=== PATIENT | female | born 1950 | race African-American/Black ===

== ENCOUNTER 2019-12-27 09:58 | Inpatient (IN) | payer MEDICARE, BC ==
[~2019-12-27] VITALS: Ht 160 cm; Wt 67.8 kg
[2019-12-27] MEDS ORDERED: ASPirin 81 mg TAB PO ONE (10:15)
[2019-12-27 11:02] LABS: Basophils # (auto) 0.1 10 ^3/uL (0-0.2); Basophils % (auto) 1.3 % (0.0-2.0); Eosinophils # (auto) 0.1 10 ^3/uL (0-0.8); Eosinophils % (auto) 1.5 % (0.0-7.0); Hematocrit 35.5 % (36.0-46.0); Hemoglobin 12.2 g/dL (12.2-16.2); Lymphocytes # (auto) 2.1 10 ^3/uL (0.4-5.4); Lymphocytes % (auto) 40.2 % (10.0-50.0); Mean Corpuscular Hemoglobin 32.1 pg (28.0-32.0); Mean Corpuscular Hgb Conc. 34.4 g/dL (32.0-36.0); Mean Corpuscular Volume 93.3 fL (80.0-100.0); Monocytes # (auto) 0.3 10 ^3/uL (0-1.3); Monocytes % (auto) 6.3 % (0.0-12.0); Neutrophils # (auto) 2.6 10 ^3/uL (1.6-8.6); Neutrophils % (auto) 50.7 % (37.0-80.0); Nucleated Red Blood Cells % 0.1 %; Platelet Count (auto) 245 10^3/uL (140-450); Red Blood Cells 3.81 10^6/uL (4.0-5.20); Red Cell Distribution Width 13.1 % (11.8-14.3); White Blood Cell 5.1 10^3/uL (4.4-10.8)
[2019-12-27 11:25] LABS: Albumin 3.9 g/dL (3.4-5.0); Anion Gap 5 (5-15); Blood Urea Nitrogen 11 mg/dL (7-18); Calcium 8.9 mg/dL (8.5-10.1); Carbon Dioxide 25 mmol/L (21-32); Chloride 109 mmol/L (98-107); Glucose 98 mg/dL (74-106); Magnesium 2.4 mg/dL (1.6-2.6); Potassium 3.7 mmol/L (3.5-5.1); Sodium 139 mmol/L (136-145)
[2019-12-27 11:26] LABS: INR 1.05 (0.9-1.15); Partial Thromboplastin Time 24.5 sec (23.0-31.2)
[2019-12-27 11:31] LABS: Alanine Aminotransferase 17 U/L (13-56); Alkaline Phosphatase 56 U/L (45-117); Aspartate Aminotransferase 11 U/L (15-37); BUN/Creatinine Ratio 16.7; Bilirubin, Total 0.4 mg/dL (0.2-1.0); GFR African American 114 mL/min; GFR Non-African American 94 mL/min; Total Protein 7.6 g/dL (6.4-8.2)
[2019-12-27 12:12] LABS: Urine Bacteria NONE SEEN /hpf (None Seen); Urine Blood Negative /uL (Negative); Urine Specific Gravity 1.013 (1.001-1.035); Urine WBC 1 /hpf (0 - 5)
[2019-12-27] MEDS ORDERED: MORPHINE SULF INJ 2 MG/ML SYRINGE 1ML IV PRN (12:45)
[2019-12-27] MEDS ORDERED: NITROGLYCERIN 0.4 MG SL TAB SL PRN ×2 (12:45→17:30)
[2019-12-27] MEDS ORDERED: ONDANSETRON HCL 4 MG/2 ML VIAL IV PRN (17:30)
[2019-12-27] MEDS ORDERED: ACETAMINOPHEN 325 MG TAB PO PRN (17:30)
[2019-12-27] MEDS ORDERED: ATORVASTATIN 20 MG TAB PO ONE (17:30)
[2019-12-27] MEDS ORDERED: ALUM & MAG HYDROX-SIMETH LIQ(MAALOX) 30 ML PO ONE (17:30)
[2019-12-27] MEDS ORDERED: ACETAMINOPHEN 500 MG TAB PO PRN (17:30)
[2019-12-27] MEDS ORDERED: LORazepam 0.5 MG TAB PO PRN (17:30)
--- NOTE | 2019-12-27 18:00 | NUR ---
Telemetry admit from ER KAPIL SNEED admitted to Telemetry unit after SBAR received from VINAY Hernandez. Patient oriented to OSWALDO MAN RN primary RN, unit, room, bed, and unit policies regarding patient care and visiting hours. Patient now on continuous telemetry monitoring, tele box #[id number] and telemetry reading on arrival to unit is NSR 92 bpm. Patient weighed by bedscale and encouraged to call if they need something. Bed in lowest/locked position, bed rails up x2, call light within reach. All questions and concerns addressed, patient verbalized understanding.
[2019-12-27] MEDS: SODIUM CHLORIDE 0.9% 1,000 ML IV SCH (18:05)
[2019-12-27] MEDS ORDERED: IBUP200C3 PO (18:31)
--- NOTE | 2019-12-27 19:00 | NUR ---
Opening Shift Note Assumed care of patient, awake and alert. No S/S of distress/SOB or pain. Instructed on POC and to call for assist PRN, will continue to monitor for changes Q1hr and PRN. Patient in the lowest possible position with call light within reach. Will continue to monitor patient.
[2019-12-27 20:00] VITALS: BP 125/80
[2019-12-27] MEDS: CARVEDILOL 3.125 MG TAB PO SCH (21:29)
[2019-12-27] MEDS: MORPHINE SULF INJ 2 MG/ML SYRINGE 1ML IV PRN (21:30)
[2019-12-27 22:12] VITALS: BP 125/80
[2019-12-28] VITALS (7 sets, daily range): BP systolic 123–145; BP diastolic 60–82
[2019-12-28] MEDS: MORPHINE SULF INJ 2 MG/ML SYRINGE 1ML IV PRN (05:23)
--- NOTE | 2019-12-28 06:00 | NUR ---
Patient complained of right sided chest pain x2 times during the night, both times morphine per protocol was administered. Patient reported the pain going away with morphine and was able to sleep. Patient stated that she feels the pain upon exertion. Will continue to monitor patient.
[2019-12-28] MEDS: SODIUM CHLORIDE 0.9% 1,000 ML IV SCH ×2 (06:33→20:10)
--- NOTE | 2019-12-28 06:42 | NUR ---
IV insertion IV access obtained, via clean sterile technique by inserting 22 gauge catheter at the right hand after 2 attempts. IV secured properly. No trauma to site. Patient tolerated well.
--- NOTE | 2019-12-28 07:45 | NUR ---
Opening Shift Note Assumed care of patient, awake, alert, and oriented. No S/S of distress/SOB or pain. Bed in lowest/locked position, bed rails up x2, call light within reach. Instructed on POC and to call for assist PRN. Will continue to monitor for changes Q1hr and PRN.
[2019-12-28] MEDS ORDERED: ADENOSINE 55 MG in GIVE UN-DILUTED 0 ML IV STA (08:12)
--- NOTE | 2019-12-28 08:20 | NUR ---
OFF UNIT PATIENT TRANSPORTED TO STRESS TEST. NO S/S OF DISTRESS, SOB, PAIN NOTED AT DEPARTURE
[2019-12-28] MEDS ORDERED: ENOXAPARIN SOD 40 MG/0.4 ML SYRINGE SC SCH (10:00)
[2019-12-28] MEDS ORDERED: LISINOPRIL 5 MG TAB PO SCH (10:00)
[2019-12-28] MEDS: CARVEDILOL 3.125 MG TAB PO SCH (10:00)
[2019-12-28 10:17] LABS: Cholesterol 189 mg/dL (< 200); HDL Cholesterol 62 mg/dL (40-59); LDL Cholesterol 107 mg/dL (< 100); Triglycerides 84 mg/dL (< 150)
[2019-12-28] MEDS: ASPirin 81 mg TAB PO SCH (11:01)
[2019-12-28] MEDS: DOCUSATE SOD 100 MG CAP PO SCH (11:02)
[2019-12-28] MEDS ORDERED: traMADol HCL 50 MG TAB PO PRN (12:15)
[2019-12-28] MEDS: HYDROcodone-ACET 5/325MG TAB PO PRN ×2 (13:15→21:21)
--- NOTE | 2019-12-28 19:00 | NUR ---
Opening Shift Note Assumed care of patient, awake and alert. No S/S of distress/SOB or pain at this time. Instructed on POC and to call for assist PRN, will continue to monitor for changes Q1hr and PRN. Patient in the lowest possible position with call light within reach. Will continue to monitor patient.
--- NOTE | 2019-12-28 21:30 | NUR ---
Patient stated that she was in pain, pain was in her right chest that gets worse upon exertion. Medication to be given per protocol for patient. Will administer and continue to monitor patient.
[2019-12-28] MEDS ORDERED: ATORVASTATIN 20 MG TAB PO SCH (22:00)
[2019-12-29] VITALS (7 sets, daily range): BP systolic 125–153; BP diastolic 71–81
--- NOTE | 2019-12-29 07:26 | NUR ---
Opening Shift Note Assumed care of patient from noc shift rn, awake and alert, resting comfortably in bed. No S/S of distress/SOB or pain at this time. Instructed on POC and to call for assistance PRN, will continue to monitor for changes Q1hr and PRN. Bed in low and locked position with call light within reach.
[2019-12-29] MEDS: DOCUSATE SOD 100 MG CAP PO SCH (09:37)
[2019-12-29] MEDS: ASPirin 81 mg TAB PO SCH (09:37)
[2019-12-29] MEDS: SODIUM CHLORIDE 0.9% 1,000 ML IV SCH (09:38)
--- NOTE | 2019-12-29 10:54 | NUR ---
DR. DU AT BEDSIDE, DISCUSSED DISCHARGE PLANS WITH PATIENT.
--- NOTE | 2019-12-29 10:57 | NUR ---
Paged for Gume BUCK to confirm stress test result Per Dr. Phelps, Head Mechanic needs to clear patient before discharge. Awaiting a call back
--- NOTE | 2019-12-29 14:49 | NUR ---
HAVE PAGED HEBER GONG 4X, HAVE NOT RECEIVED A CALLBACK WILL CONTINUE TO PAGE FOR CARDIOLOGY CLEARANCE
--- NOTE | 2019-12-29 15:01 | NUR ---
Assessment Patient is a 54-year-old female who is alert and oriented. Prior to admission patient live with her daughter Yong and functioned with assistance. Per patient her daughter helps her with her ADLs. Per patient she does not have any medical equipment now. Advised patient there is a social service consult for a walker. Informed patient clinical information will be faxed to [facility]. Per patient she will return to her prior living arrangements post discharge and family will transport her home. Informed patient she has the right to participate in all discharge planning. Patient verbalized understanding and agreed to discharge plan. Faxed clinical information to [facility] request for walker to be deliver to bedside or lobby. Addendum: 12/29/19 at 1503 by ARLENE ARREDONDO Amended: Links added.
--- NOTE | 2019-12-29 16:14 | NUR ---
RECEIVED CONFIRMATION FROM ON-CALL LAND RECLAMATION SPECIALIST, DR. AVERY THAT PATIENT ISS CLEARED TO BE DISCHARGED. STRESS TEST IS NEGATIVE AND ECHO IS NORMAL. PATIENT IS ALSO AWAITING WALKER TO BE DELIVERED AT BEDSIDE OR LOBBY BY MARCUS.
--- NOTE | 2019-12-29 17:04 | NUR ---
PT IS AT SBA LEVEL WITH ACTIVITIES. NURSING TO ASSIST PATIENT NEEDED.
--- NOTE | 2019-12-29 18:00 | NUR ---
patient discharged at this time per MD's order. Discharge summary, provided with prescription and follow up instruction. pt verbalized understanding. A/O x4 during discharge. Walker delivered at bedside by bryn. IV discontinued and tele box returned to ICU.
== END 2019-12-29 18:00 | disposition home or self-care (01) | DRG 303 ==
LOC: ER 09:58 → TELE 09:59 → TELE-CENTR 17:32
PROVIDERS: ADMIT Hospitalist; ATTEND Internal Medicine
DX: I25.10 Atherosclerotic heart disease of native coronary artery without angina pectoris (principal); I10 Essential (primary) hypertension; E78.5 Hyperlipidemia, unspecified; R00.1 Bradycardia, unspecified; Z82.49 Family history of ischemic heart disease and other diseases of the circulatory system; Z90.710 Acquired absence of both cervix and uterus
CPT/HCPCS: 36415; 71045; 78452; 80053; 80061; 81001; 83036; 83735; 83880; 84443; 84484; 85025; 85610; 85730; 93017; 93306; 93926; 93970; 97110; 97116; 97163; 97530; G0378; J0153

== ENCOUNTER 2025-01-17 15:19 | Emergency (ER) | payer MEDICARE, BC ==
[~2025-01-17] VITALS: Ht 157.5 cm; Wt 60.6 kg
[~2025-01-17 15:19] MED LIST: IBUP200C3 PO
--- NOTE | 2025-01-17 16:25 | ED.PDOC ---
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 The patient states that for the last 3 weeks she has had constant sharp suprapubic pain, nonradiating, intensity 8/10, associated with urinary frequency, tenesmus, and strong smelling cloudy urine. She reports that approximately 1 week ago she began to have right flank pain as well described as sharp, nonradiating, 8/10 intensity, associated with nausea, headaches, and fatigue. She denies fever, vomiting, hematuria, chest pain, diaphoresis, and palpitations. The patient went to urgent care today where she was told she possibly has a kidney infection and was advised to come to the emergency department. 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 History Family History Family History (Other): Denies any previous family history Social History Smoker: Non-Smoker Alcohol: Occasionally Drugs: Denies Drug Use Lives In: Home Constitutional: reports: fatigue EENTM: denies: blurred vision, double vision, ear bleeding, ear discharge, ear drainage, ear pain, ear ringing, eye pain, eye redness, hearing loss, mouth pain, mouth swelling, nasal discharge, nose bleeding, nose congestion, nose pain, photophobia, tearing, throat pain, throat swelling, voice changes, others Respiratory: denies: cough, hemoptysis, orthopnea, SOB at rest, shortness of breath, SOB with excertion, stridor, wheezing, others Cardiovascular: denies: chest pain, dizzy spells, diaphoresis, Dyspnea on exertion, edema, irregular heart beat, left arm pain, lightheadedness, palpitations, PND, syncope, others Gastrointestinal: denies: abdomen distended, abdominal pain, blood streaked bowels, constipated, diarrhea, dysphagia, difficulty swallowing, hematemesis, melena, nausea, poor appetite, poor fluid intake, rectal bleeding, rectal pain, vomiting, others Genitourinary: reports: dysuria, flank pain, frequency, urgency, others (Tenesmus) Neurological: denies: dizziness, fainting, headache, left sided numbness, left sided weakness, numbness, paresthesia, pre-existing deficit, right sided numbness, right sided weakness, seizure, speech problems, tingling, tremors, weakness, others Musculoskeletal: denies: back pain, gout, joint pain, joint swelling, muscle pain, muscle stiffness, neck pain, others Integumetry: denies: bruises, change in color, change in hair/nails, dryness, laceration, lesions, lumps, rash, wounds, others Hematologic/Lymphatic: denies: anemia, blood clots, easy bleeding, easy bruising, swollen glands, others Endocrine: denies: excessive hunger, excessive sweating, excessive thirst, excessive urination, flushing, intolerance to cold, intolerance to heat, unexplained weight gain, unexplained weight loss, others Physical Exam General Appearance: Mild Distress HEENT: Normal ENT Inspection, PERRL/EOMI, Pharynx Normal, TMs Normal Neck: Full Range of Motion, Non-Tender, Normal, Normal Inspection Respiratory: Chest Non-Tender, No Accessory Muscle Use, No Respiratory Distress, Normal Breath Sounds Cardiovascular: No Edema, No JVD, No Murmur, No Gallop, Normal Peripheral Pulses, Regular Rate/Rhythm Breast Exam: Deferred Gastrointestinal: LLQ (Tenderness on palpation ), No Organomegaly, No Pulsatile Mass, Normal Bowel Sounds, RLQ (Tenderness on palpation), Suprapubic (Tenderness), Tenderness, Other (Right flank pain on minimal palpation) Genitalia: Deferred Pelvic: Deferred Rectal: Deferred Extremities: No calf tenderness, Normal capillary refill, Normal inspection, Normal range of motion, Non-tender Neurologic: No Motor Deficits, Normal Affect, Normal Mood, No Sensory Deficits Cerebellar Function: Normal Reflexes: Normal Skin: Normal Color Lymphatic: No Adenopathy Was a procedure done? Was a procedure done?: No Differential Dx Considerations may include: Cystitis, Pyelonephritis, Muscle strain X-Ray, Labs, Meds, VS Vital Signs Date Time Temp Pulse Resp B/P (MAP) Pulse Ox O2 Delivery O2 Flow Rate FiO2 10/20/25 15:21 98.5 73 15 129/83 98 98.5 Lab Test 01/17/25 16:33 01/17/25 16:14 Range/Units White Blood Count 5.5 4.4-10.8 10^3/uL Red Blood Count 4.23 4.0-5.20 10^6/uL Hemoglobin 13.2 12.2-16.2 g/dL Hematocrit 39.4 36.0-46.0 % Mean Corpuscular Volume 93.2 80.0-100.0 fL Mean Corpuscular Hemoglobin 31.2 28.0-32.0 pg Mean Corpuscular Hemoglobin Concent 33.5 32.0-36.0 g/dL Red Cell Distribution Width 13.7 11.8-14.3 % Platelet Count 253 140-450 10^3/uL Mean Platelet Volume 8.6 6.9-10.8 fL Neutrophils (%) (Auto) 52.6 37.0-80.0 % Lymphocytes (%) (Auto) 38.6 10.0-50.0 % Monocytes (%) (Auto) 7.0 0.0-12.0 % Eosinophils (%) (Auto) 1.1 0.0-7.0 % Basophils (%) (Auto) 0.7 0.0-2.0 % Neutrophils # (Auto) 2.9 1.6-8.6 10 ^3/uL Lymphocytes # (Auto) 2.1 0.4-5.4 10 ^3/uL Monocytes # (Auto) 0.4 0-1.3 10 ^3/uL Eosinophils # (Auto) 0.1 0-0.8 10 ^3/uL Basophils # (Auto) 0 0-0.2 10 ^3/uL Nucleated Red Blood Cells 0.0 % Sodium Level 142 136-145 mmol/L Potassium Level 4.1 3.5-5.1 mmol/L Chloride Level 101 98-107 mmol/L Carbon Dioxide Level 30 20-31 mmol/L Anion Gap 11 5-15 Blood Urea Nitrogen 15 9-23 mg/dL Creatinine 0.94 0.550-1.02 mg/dL Glomerular Filtration Rate Calc 63 >90 mL/min BUN/Creatinine Ratio 16.0 10.0-20.0 Serum Glucose 132 H 74-106 mg/dL Calcium Level 10.3 8.7-10.4 mg/dL Urine Color Light-yellow Yellow Urine Clarity Clear Clear Urine pH 5.0 5.0-9.0 Urine Specific [place] 1.021 1.001-1.035 Urine Protein Negative Negative Urine Ketones Negative Negative Urine Blood Negative Negative /uL Urine Nitrite Negative Negative Urine Bilirubin Negative Negative Urine Urobilinogen Normal Negative mg/dL Urine Leukocyte Esterase 1+ Negative /uL Urine RBC 1 0 - 4 /hpf Urine Microscopic WBC 3 0-5 /HPF Urine Squamous Epithelial Cells Few <5 /hpf Urine Bacteria None seen None Seen /hpf Urine Glucose Normal Normal mg/dL Urine Opiates Screen Neg NEGATIVE Urine Fentanyl Screen Neg NEGATIVE Urine Barbiturates Screen Neg NEGATIVE Urine Phencyclidine Screen Neg NEGATIVE Urine Amphetamines Screen Neg NEGATIVE Urine Benzodiazepines Screen Neg NEGATIVE Urine Cocaine Screen Neg NEGATIVE Urine Cannabinoids Screen Neg NEGATIVE Time of 1ST Reevaluation: 17:40 Reevaluation 1ST: Improved Patient Education/Counseling: Diagnosis, Treatment Family Education/Counseling: No Family Present SEPSIS Sepsis Screen Date sepsis recognized/suspect: Jan 17, 2025 Time Sepsis recognized/suspect: 1523 Recent Procedure: No On Antibiotic Therapy: No Respiratory Rate >20: No Heart Rate >90: No Temp<36 C (96.8 F) or >38.3 C: No SBP <90 or MAP <65 mmHG: No New Acute Mental Status Change: No Is the patient on CPAP, BIPAP,: No Physician Orders Urine Bacterial Culture (01/17/25 16:03) Ct Ab Pel Wo Con-No Oral Or Iv (01/17/25 16:04) Vital Signs Date Time Temp Pulse Resp B/P (MAP) Pulse Ox O2 Delivery O2 Flow Rate FiO2 01/17/25 15:21 98.5 73 15 129/83 98 98.5 Laboratory Tests Test 01/17/25 16:33 White Blood Count 5.5 10^3/uL (4.4-10.8) Departure 1 Departure Time of Disposition: 17:59 (Patient presented today with right flank pain that was concerning for possible cystitis, pyelonephritis, nephrolithiasis, muscle strain. 1. I ordered and reviewed the result of atleast 3 labs including a CBC, BMP, and urinanalysis. 2. I independently interpreted an abdomen/pelvis CT which shows fecal retention in the colon, but no evidence of pyelonephritis. After review of the data, patient does not present nephrolithiasis. She is considered stable for discharge. She will be discharged with course of oral antibiotics to be completed at home, given that due to symptoms it is considered beneficial. ) Impression: Primary Impression: Pyelonephritis Disposition: HOME / SELF CARE / HOMELESS Condition: Stable Additional Instructions: You presented today with flank pain Your workup today was benign including labs and CT abdomen/pelvis Due to your symptoms, it considered that there is benefit in oral antibiotic course It is important to follow up with your regular doctor within 1 week If your symptoms worsen or you have any other concerns please return to the emergency department Discharged With: Self Critical Care Note Critical Care Time?: No Stability Stability form required: HARDEEP Mann RESIDENT Jan 17, 2025 16:25
[2025-01-17 16:32] LABS: Urine Protein, UAD Negative (Negative)
[2025-01-17 16:42] LABS: Amphetamine Screen, Urine Neg (NEGATIVE); Barbiturate Scree,Urine Neg (NEGATIVE); Benzodiazephine Screen, Urine Neg (NEGATIVE); Cannabinoid Screen, Urine Neg (NEGATIVE); Cocaine Screen, Urine Neg (NEGATIVE); Opiate Scree,Urine Neg (NEGATIVE); Phencyclidine Screen, Urine Neg (NEGATIVE)
--- NOTE | 2025-01-17 16:52 | DVH ---
EXAM: CT CT AB PEL WO CON-NO ORAL OR IV HISTORY: R/o Pyelonephritis COMPARISON: None TECHNIQUE: Helical CT images of the abdomen and pelvis were performed without IV contrast. Sagittal a nd coronal reformatted images were obtained. This CT exam was performed using one or more of the foll owing dose reduction techniques: Automated exposure control, adjustment of the mA and/or kv according to patient size, or the use of iterative reconstruction techniques. Radiation Dose: Abdomen/Pelvis: CTDIvol 6.79 mGy, DLP 316.9 mGy*cm. FINDINGS: CT abdomen: There is mild scarring and/or atelectasis in the lung bases. The heart is borderline enla rged. There is a small pericardial effusion. The stomach is distended with ingested food. There is a left upper quadrant splenule. The noncontrast liver, spleen, gallbladder, pancreas, right kidney, an d bilateral adrenal glands are unremarkable. Column of Neel is incidentally noted in the left kidne y. No evidence of perinephric fluid or fat stranding bilaterally. No abdominal aortic aneurysm. CT pelvis: No abnormal bowel dilatation, free air, or free fluid. There is fecal retention in the col on. There are descending and sigmoid colon diverticula without evidence of acute diverticulitis. Th e uterus is surgically absent. The appendix and urinary bladder are unremarkable. There is a small le ft inguinal fatty indirect hernia. There are chronic appearing mild superior endplate compression fra ctures of T12, L1, and L2. There is moderate to severe osteoarthritis of the bilateral hips. IMPRESSION: 1. Small pericardial effusion and borderline cardiomegaly. 2. Fecal retention in the colon suggestive of constipation. 3. Descending and sigmoid colon diverticula without evidence of acute diverticulitis. 4. Postoperative changes of hysterectomy. 5. Moderate to severe bilateral hip osteoarthritis. 6. Multiple chronic appearing fractures of the thoracic and lumbar spine. 7. No evidence of pyelonephritis, bowel obstruction, acute appendicitis, or other acute process in th e abdomen or pelvis.
[2025-01-17 17:01] LABS: Hematocrit 39.4 % (36.0-46.0); Hemoglobin 13.2 g/dL (12.2-16.2); Mean Corpuscular Hemoglobin 31.2 pg (28.0-32.0); Mean Corpuscular Volume 93.2 fL (80.0-100.0); Nucleated Red Blood Cells % 0.0 %
[2025-01-17 17:06] LABS: Chloride 101 mmol/L (98-107); Potassium 4.1 mmol/L (3.5-5.1); Sodium 142 mmol/L (136-145)
[2025-01-17 17:07] LABS: Anion Gap 11 (5-15); Carbon Dioxide 30 mmol/L (20-31)
[2025-01-17 17:08] LABS: Calcium 10.3 mg/dL (8.7-10.4)
[2025-01-17 17:13] LABS: BUN/Creatinine Ratio 16.0 (10.0-20.0); Blood Urea Nitrogen 15 mg/dL (9-23)
[2025-01-17 17:25] LABS: Glucose 132 mg/dL (74-106)
[2025-01-17] MEDS ORDERED: CIPR500T4 PO (18:23)
[2025-01-17] MEDS ORDERED: CIPR-173 PO (18:25)
[2025-01-17 18:57] VITALS: BP 132/78; PULSE 64; RESP 16; TEMP 98.1; O2SAT 98
== END 2025-01-17 19:01 | disposition home or self-care (01) ==
LOC: ER 15:19
DX: N12 Tubulo-interstitial nephritis, not specified as acute or chronic (principal); I25.10 Atherosclerotic heart disease of native coronary artery without angina pectoris; M16.0 Bilateral primary osteoarthritis of hip; Z90.710 Acquired absence of both cervix and uterus; K57.30 Diverticulosis of large intestine without perforation or abscess without bleeding; R11.0 Nausea; R51.9 Headache, unspecified; Z79.899 Other long term (current) drug therapy
CPT/HCPCS: 36415; 74176; 80048; 80307; 81001; 85025; 87086

== ENCOUNTER 2025-01-20 15:06 | Inpatient (IN) | payer MEDICARE, BC ==
[~2025-01-20] VITALS: Ht 157.5 cm; Wt 67.2 kg
[~2025-01-20 15:06] MED LIST changes: +CIPR-173 PO
--- NOTE | 2025-01-20 15:28 | ED.PDOC ---
HPI (NEURO) HPI Comments This is a 74 year old female presenting to the ED with chief complaint of headache. Patient reports that she has been experiencing a headache with associated right sided chest pain, dizziness, and nausea for the past few hours. Patient relays that she visited today and was advised to come to the ED for further evaluation. Patient noted to be 100% on RA. Patient denies any SOB, vomiting, diarrhea, abdominal pain, or syncope. Chief Complaint: Headache Time Seen by MD: 15:25 Primary Care Provider: States she doesn't remember her PCP's name Reviewed Notes: Nurses Notes, Medications, Allergies Information Source: Patient Mode of Arrival: Ambulatory Severity: Moderate Dizziness/Weakness Severity: Does not affect activitie Headache Severity: Moderate Timing: Hours Duration: Since onset Prehospital treatment: None Headache Quality: Aching Headache Location: Generalized Onset: At rest Circumstances: Spontaneous Associated Signs and Symptoms: Headache, Nausea, Chest Pain Past Medical History PAST MEDICAL HISTORY: CAD, UTI'S Surgical History: Denies all surgeries RISK CONTROL FIELD REPRESENTATIVE History: No Pertinent RISK CONTROL FIELD REPRESENTATIVE History Family History Family History: Reviewed,noncontributory to illness Family History (Other): Denies any previous family history Social History Smoker: Non-Smoker Alcohol: Occasionally Drugs: Denies Drug Use Lives In: Home Constitutional: denies: chills, diaphoresis, fatigue, fever, malaise, sweats, weakness, others EENTM: denies: blurred vision, double vision, ear bleeding, ear discharge, ear drainage, ear pain, ear ringing, eye pain, eye redness, hearing loss, mouth pain, mouth swelling, nasal discharge, nose bleeding, nose congestion, nose pain, photophobia, tearing, throat pain, throat swelling, voice changes, others Respiratory: denies: cough, hemoptysis, orthopnea, SOB at rest, shortness of breath, SOB with excertion, stridor, wheezing, others Cardiovascular: reports: chest pain; denies: dizzy spells, diaphoresis, Dyspnea on exertion, edema, irregular heart beat, left arm pain, lightheadedness, palpitations, PND, syncope, others Gastrointestinal: reports: nausea; denies: abdomen distended, abdominal pain, blood streaked bowels, constipated, diarrhea, dysphagia, difficulty swallowing, hematemesis, melena, poor appetite, poor fluid intake, rectal bleeding, rectal pain, vomiting, others Genitourinary: denies: abnormal vagina bleeding, burning, dyspareunia, dysuria, flank pain, frequency, hematuria, incontinence, pain, , vagina discharge, urgency, others Neurological: reports: dizziness, headache; denies: fainting, left sided numbness, left sided weakness, numbness, paresthesia, pre-existing deficit, right sided numbness, right sided weakness, seizure, speech problems, tingling, tremors, weakness, others Musculoskeletal: denies: back pain, gout, joint pain, joint swelling, muscle pain, muscle stiffness, neck pain, others Integumetry: denies: bruises, change in color, change in hair/nails, dryness, laceration, lesions, lumps, rash, wounds, others Allergic/Immunocompromised: denies: Difficulty Healing, Frequent Infections, Hives, Itching, others Hematologic/Lymphatic: denies: anemia, blood clots, easy bleeding, easy bruising, swollen glands, others Endocrine: denies: excessive hunger, excessive sweating, excessive thirst, excessive urination, flushing, intolerance to cold, intolerance to heat, unexplained weight gain, unexplained weight loss, others Psychiatric: denies: anxiety, bipolar disorder, depression, hopeless, panic disorder, schizophrenia, sleepless, suicidal, others All Other Systems: Reviewed and Negative Physical Exam General Appearance: Moderate Distress, Normal HEENT: Normal ENT Inspection, Pharynx Normal, TMs Normal Neck: Full Range of Motion, Non-Tender, Normal, Normal Inspection Respiratory: Chest Non-Tender, Lungs Clear, No Accessory Muscle Use, No Respiratory Distress, Normal Breath Sounds Cardiovascular: No Edema, No JVD, No Murmur, No Gallop, Normal Peripheral Pulses, Regular Rate/Rhythm Breast Exam: Deferred Gastrointestinal: No Organomegaly, Non Tender, No Pulsatile Mass, Normal Bowel Sounds, Soft Genitalia: Deferred Pelvic: Deferred Rectal: Deferred Extremities: No calf tenderness, Normal capillary refill, Normal inspection, Normal range of motion, Non-tender, No pedal edema Musculoskeletal : Apperance: Normal Neurologic: Alert, wheat buyer II-XII nml as Tested, No Motor Deficits, Normal Affect, Normal Mood, No Sensory Deficits Cerebellar Function: Normal Reflexes: Normal Skin: Dry, Normal Color, Warm Peripheral Pulses: 3+ Radial (R), 3+ Radial (L) Lymphatic: No Adenopathy Was a procedure done? Was a procedure done?: No Differential Diagnosis (SZ) Seizure: Psychogenic Seizure, Closed Head Injury, CVA/TIA X-Ray, Labs, Meds, VS Vital Signs Date Time Temp Pulse Resp B/P (MAP) Pulse Ox O2 Delivery O2 Flow Rate FiO2 01/20/25 15:21 98.6 81 16 122/82 100 98.6 Patient alert. Complaining of headache dizziness. Vitals stable. Answering questions. Unable to ambulate without feeling like she is going to fall down. EKG reviewed does not show any acute changes. She will need a stress test. CT of the head. Explained to the patient. Continue monitoring. Time of 1ST Reevaluation: 16:24 Reevaluation 1ST: Unchanged Patient Education/Counseling: Diagnosis, Treatment Family Education/Counseling: No Family Present Departure 1 Departure Time of Disposition: 15:41 Impression: Primary Impression: Chest pain of unknown etiology Additional Impression: Autonomic disorder Disposition: ADMITTED INPATIENT Admit to: Med Surg Condition: Guarded Critical Care Note Critical Care Time?: Yes (90 min-critical care time only) Stability Stability form required: No Heart Score Heart Score: Heart Score Response (Comments) Value History Slightly Suspicious 0 EKG N/A 0 Age >65 2 Risk Factors >3 or Hx ASHD 2 Troponin Normal limit 0 Total 4 I personally scribed for TYLER GALLARDO MD ([email or web address]) on 01/20/25 at 15:27. Electronically submitted by Chicho Small ([email or web address]). TYLER GALLARDO MD Jan 20, 2025 15:27
--- NOTE | 2025-01-20 16:04 | DVH ---
CHEST RADIOGRAPH Indication: sob Technique: Single frontal view of the chest was obtained Comparison: None FINDINGS: Lines and Tubes: None Lungs: No focal consolidation. Pleura: No effusion. No pneumothorax. Cardiomediastinal contours: Unremarkable Bones: Anterior fusion lower cervical spine IMPRESSION: 1. No acute cardiopulmonary disease.
--- NOTE | 2025-01-20 16:05 | DVH ---
CLINICAL HISTORY: dizzy TECHNIQUE: Helical scanning was performed of the head from the skull base to the vertex. Multiplanar reconstructions were performed. This exam was performed according to our departmental dose optimizat ion program. Up-to-date CT equipment and radiation dose reduction techniques are utilized as appropri ate. CTDI 53 DLP 891 COMPARISON: None FINDINGS: There is no evidence for acute intracranial hemorrhage, acute ischemic changes, mass, mass effect, or extra-axial fluid collection. There is no hydrocephalus or midline shift. There is no effacement of the cerebral sulci and basal subarachnoid cisterns. The jackson-white matter differentiation is well lulú ntained. The imaged paranasal sinuses demonstrate mild bilateral sphenoid sinus mucosal thickening IMPRESSION: NO ACUTE INTRACRANIAL ABNORMALITY SEEN.
[2025-01-20 16:14] LABS: Hematocrit 38.4 % (36.0-46.0); Hemoglobin 12.8 g/dL (12.2-16.2); Mean Corpuscular Hemoglobin 31.1 pg (28.0-32.0); Mean Corpuscular Volume 93.6 fL (80.0-100.0); Nucleated Red Blood Cells % 0.0 %
[2025-01-20 16:23] LABS: Chloride 103 mmol/L (98-107); Potassium 3.9 mmol/L (3.5-5.1); Sodium 138 mmol/L (136-145)
[2025-01-20 16:24] LABS: Anion Gap 11 (5-15); Calcium 10.0 mg/dL (8.7-10.4); Carbon Dioxide 24 mmol/L (20-31)
[2025-01-20 16:29] LABS: BUN/Creatinine Ratio 13.9 (10.0-20.0); Blood Urea Nitrogen 11 mg/dL (9-23)
[2025-01-20 16:30] LABS: Glucose 111 mg/dL (74-106)
--- NOTE | 2025-01-20 18:39 | ECG ---
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
--- NOTE | 2025-01-20 22:10 | DVHHPRES ---
History of Present Illness Resident Creating Document: JOSH GARDNER History of Present Illness Patient is a 74-year-old female with past medical history of UTI, presented to [facility] ED with complaint of headache and chest pain. The patient reports headache that began 4 days ago, described as frontal in location. Patient has experienced worsening symptoms including right-sided chest pain radiating to the right arm, dizziness, and nausea that began 2 days ago. The patient also complains of urinary tract infection (UTI) symptoms, including frequent urination and lower abdominal pain. She denies shortness of breath, vomiting, diarrhea, abdominal pain, or syncope. She was evaluated at an urgent care center earlier today and was referred to the emergency department for further evaluation. On evaluation in the ED, patient is afebrile, vitals are stable. Initial labs show troponin <3, serum glucose 111. Head CT shows no acute intracranial abnormality. Patient is admitted for further evaluation and management. Renal/: UTI Past Surgical History: None Family History: None Smoke: No ALCOHOL: none Drugs: None Review of Systems Review of Systems Constitutional: Headache Eyes: No Pain, No Vision change, No Conjunctivae inflammation, No Eyelid inflammation, No Other, No Redness ENT: No Ear pain, No Ear discharge, No Nose pain, No Nose discharge, No Nose congestion, No Mouth pain, No Mouth swelling, No Throat pain, No Throat swelling, No Other Cardiovascular: No Chest Pain, No Palpitations, No Orthopnea, No Paroxysmal No Dyspnea, No Edema, No Lt Headedness, No Other Respiratory: No Cough, No Dry, No Shortness of breath, No SOB with exertion, No Wheezing, No Hemoptysis, No Pleuritic Pain, No Sputum, No Other Gastrointestinal: Nausea, No Vomiting, No Abdominal Pain, No Diarrhea, No Constipation, No Melena, No Hematochezia, No Other Genitourinary: No Dysuria, Frequency, No Incontinence, No Hematuria, No Retention, No Other Musculoskeletal: No other, No neck pain, No shoulder pain, No arm pain, No back pain, No hand pain, No leg pain, No foot pain Skin: No Rash, No Lesions, No Jaundice, No Bruising, No Other Allergies: Coded Allergies: NO KNOWN ALLERGIES (Unverified , 12/27/19) Exam Vital Signs Vital Signs Date Time Temp Pulse Resp B/P (MAP) Pulse Ox O2 Delivery O2 Flow Rate FiO2 10/23/25 20:50 99.3 96 16 141/78 (99) 96 99.3 Exam General Appearance: Cooperative. Well developed. Well nourished. NAD Head Exam: Normal inspection Neck Exam: Normal inspection. Non-tender. Normal alignment Pulmonary/Respiratory: Chest non-tender. Clear bilateral breath sounds, no crackles, no wheezing. Cardiovascular/Chest: Regular rate and rhythm. No murmurs. No JVD. Peripheral Pulses: 2+ Radial (R). 2+ Radial (L). 2+ Pedal (R). 2+ Pedal (L) Abdominal Exam: Normal bowel sounds. Soft. normal abdomen, no visible veins, Nontender. No hepatospenomegaly. No masses Ankle Exam: Negative ankle edema Lower extremities: Negative lower extremity edema Neuro/Mental Status: A&O x4. Coherent. Thoughts/Psych: Normal thought pattern. Appropriate mood and affect. Good judgement and insight Skin Exam: Normal inspection. Normal color. Warm. Dry Labs/Xrays Labs Test 01/20/25 18:25 01/20/25 15:49 Range/Units Troponin I High Sensitivity < 3 L </=34 ng/L White Blood Count 6.0 4.4-10.8 10^3/uL Red Blood Count 4.10 4.0-5.20 10^6/uL Hemoglobin 12.8 12.2-16.2 g/dL Hematocrit 38.4 36.0-46.0 % Mean Corpuscular Volume 93.6 80.0-100.0 fL Mean Corpuscular Hemoglobin 31.1 28.0-32.0 pg Mean Corpuscular Hemoglobin Concent 33.2 32.0-36.0 g/dL Red Cell Distribution Width 13.3 11.8-14.3 % Platelet Count 229 140-450 10^3/uL Mean Platelet Volume 8.6 6.9-10.8 fL Neutrophils (%) (Auto) 78.1 37.0-80.0 % Lymphocytes (%) (Auto) 8.0 L 10.0-50.0 % Monocytes (%) (Auto) 12.8 H 0.0-12.0 % Eosinophils (%) (Auto) 0.2 0.0-7.0 % Basophils (%) (Auto) 0.9 0.0-2.0 % Neutrophils # (Auto) 4.7 1.6-8.6 10 ^3/uL Lymphocytes # (Auto) 0.5 0.4-5.4 10 ^3/uL Monocytes # (Auto) 0.8 0-1.3 10 ^3/uL Eosinophils # (Auto) 0 0-0.8 10 ^3/uL Basophils # (Auto) 0.1 0-0.2 10 ^3/uL Nucleated Red Blood Cells 0.0 % Sodium Level 138 136-145 mmol/L Potassium Level 3.9 3.5-5.1 mmol/L Chloride Level 103 98-107 mmol/L Carbon Dioxide Level 24 20-31 mmol/L Anion Gap 11 5-15 Blood Urea Nitrogen 11 9-23 mg/dL Creatinine 0.79 0.550-1.02 mg/dL Glomerular Filtration Rate Calc 78 >90 mL/min BUN/Creatinine Ratio 13.9 10.0-20.0 Serum Glucose 111 H 74-106 mg/dL Calcium Level 10.0 8.7-10.4 mg/dL SEPSIS Sepsis Screen Date sepsis recognized/suspect: Jan 20, 2025 Time Sepsis recognized/suspect: 1524 Recent Procedure: No On Antibiotic Therapy: Yes Respiratory Rate >20: No Heart Rate >90: No Temp<36 C (96.8 F) or >38.3 C: No SBP <90 or MAP <65 mmHG: No New Acute Mental Status Change: No Is the patient on CPAP, BIPAP,: No Physician Orders Chest Portable (01/20/25 15:27) Urinalysis (01/20/25 15:27) Head Without Contrast (01/20/25 15:27) Vital Signs Date Time Temp Pulse Resp B/P (MAP) Pulse Ox O2 Delivery O2 Flow Rate FiO2 01/20/25 20:50 99.3 96 16 141/78 (99) 96 99.3 01/20/25 15:21 98.6 81 16 122/82 100 98.6 01/20/25 15:17 78 Laboratory Tests Test 01/20/25 15:49 White Blood Count 6.0 10^3/uL (4.4-10.8) Assessment/Plan Assessment/Plan Acute intractable headache with unknown etiology Head CT: no acute intracranial abnormality seen Carotid Doppler Study: normal right/ left carotid system pain management with Tylenol 650 mg and Toradol IV Chronic compression fracture of T11/T12 and L2 Acute intractable chest pain likely due to above, musculoskeletal Abdomen/Pelvis CT: Chronic appearing mild superior endplate compression fracture deformities of T11, T12 and L2 resulting in less than 25% anterior height loss at each level. Monitor Pain control with Tylenol Outpatient follow-up with Orthopedics EKG: Sinus rhythm. Magnesium Repeat panel Aspirin 81 mg p.o. daily Lipitor 40 mg p.o. HS UTI, symptomatic Urine bacterial culture repeat urinalysis Ceftriaxone IV 1 g daily Small sliding-type hiatal hernia Abdomen/Pelvis CT: Small sliding-type hiatal hernia. No acute abdominal or pelvic findings. Outpatient follow-up Goals of care: Full code, discussed for >16 minutes on 01/20/25 Plan discussed with patient Plan discussed with Dr. Delvalle Plan discussed with: Patient Date of Service: Jan 21, 2025 Billing Provider: BERTA DELVALLE MD Common Visit Codes: [id number] INP/OBS CARE (HIGH) JOSH GARDNER RESIDENT Jan 20, 2025 22:10 HUBERT LEÓN RESIDENT Jan 21, 2025 08:28
[2025-01-20] MEDS ORDERED: CIPROFLOXACIN HYDROCHLORIDE 250 MG TAB PO ONE (22:30)
[2025-01-20] MEDS ORDERED: ONDANSETRON HCL 4 MG/2 ML VIAL IV PRN (22:30)
[2025-01-20] MEDS ORDERED: MORPHINE SULFATE INJ 2 MG/ml SYRG IV PRN (22:30)
[2025-01-20] MEDS ORDERED: IBUPROFEN 100MG/5ML ORAL SUSP 100 MG/5 ML UD PO ONE (22:30)
[2025-01-20] MEDS ORDERED: IBUPROFEN 100MG/5ML ORAL SUSP 100 MG/5 ML UD PO PRN (22:30)
[2025-01-20] MEDS ORDERED: NITROGLYCERIN 0.4 MG SL TAB SL PRN (22:30)
[2025-01-20 23:30] LABS: Alanine Aminotransferase 15.0 U/L (7-40); Alkaline Phosphatase 58.0 U/L (46-116); Total Protein 7.9 g/dL (5.7-8.2)
[2025-01-20 23:31] LABS: Bilirubin, Direct 0.1 mg/dL (<0.3); Bilirubin, Total 0.4 mg/dL (0.2-1.0)
[2025-01-20 23:41] LABS: Albumin 4.8 g/dL (3.2-4.8)
--- NOTE | 2025-01-20 23:52 | DVH ---
CLINICAL HISTORY: headache TECHNIQUE: Pal-scale, Color and Duplex Doppler imaging of the bilateral carotid systems was performe d. COMPARISON: None Findings: Right Carotid system: There is no significant plaque present in the right carotid system. Left Carotid system: There is no significant plaque present in the left carotid system. The following flow velocities were obtained (cm/sec). Right Carotid System: ICA PSV: 77 cm/sec ICA PDV: 25 cm/sec ICA/CCA Ratio: 1.0 Left Carotid System: ICA PSV: 100 cm/sec ICA PDV: 35 cm/sec ICA/CCA Ratio: 1.5 The right and left common carotid and external carotid arteries are patent. There is antegrade flow i n both vertebral arteries and external carotid arteries. There is a top-normal 6 mm left level 2 lymph node with preserved fatty hilum. IMPRESSION: NORMAL RIGHT CAROTID SYSTEM. NORMAL LEFT CAROTID SYSTEM. Estimation of carotid stenosis is based on velocity parameters that correlate the residual internal c arotid diameter with that of the more distal vessel in accordance with the [place] Symptomatic Carotid Endarterectomy Trial (NASCET).
[2025-01-21] VITALS (8 sets, daily range): BP systolic 116–151; BP diastolic 64–104; PULSE 68–125; RESP 16–24; TEMP 97.8–98.7; O2SAT 92–100
[2025-01-21] MEDS: ACETAMINOPHEN 325 MG TAB PO PRN (02:08)
--- NOTE | 2025-01-21 04:10 | DVH ---
Exam: CT CT AB PEL WO CON-NO ORAL OR IV History: abdominal pain Comparison Study: CT CT AB PEL WO CON-NO ORAL OR IV on DOS: 01/17/25 Technique: Multidetector spiral CT of the abdomen was performed from lung bases to pubic symphysis. I maging was performed without IV contrast. Axial, coronal and sagittal multiplanar reformats were obta ined from the axial data set by the technologist. Radiation Dose : 1. Abdomen/Pelvis: CTDIvol 5.99 mGy, DLP 341.5 mGy*cm. Findings: Evaluation of solid organs is limited due to lack of intravenous contrast use. Lung Bases: No acute or significant lung base finding. Normal heart size. No pleural or pericardial effusion. Liver: The liver is normal in size. 5 mm left hepatic lobe cyst. No focal lesions. Gallbladder and Biliary Tree: Unremarkable Spleen: Unremarkable Pancreas: The pancreas is grossly normal in appearance. Adrenal Glands: Unremarkable Kidneys: Kidneys are grossly normal without calculi or hydronephrosis. Bladder: Grossly unremarkable for degree of distention. Bowel: Small sliding-type hiatal hernia. The stomach is grossly normal in appearance. Small bowel and colon are normal in caliber and distribution. The appendix is not visualized; however, no secondary findings of acute appendicitis identified. Ascites: Absent Lymphadenopathy: No mesenteric, retroperitoneal or periportal lymphadenopathy. Abdominal Wall and Mesentery: Unremarkable. Vasculature: The visualized abdominal aorta is normal in size and caliber. Atherosclerotic vascular c alcifications. Evaluation of abdominal and pelvic vessels is limited due to lack of intravenous cont rast. Pelvic Organs: Unremarkable Musculoskeletal: No aggressive focal bony lesions, acute fractures or dislocation. Chronic appearing compression fracture deformities of the T11, T12 and L2 superior endplates has resulted in less than 25% anterior height loss at each level. IMPRESSION: 1. No acute abdominal or pelvic findings. 2. Small sliding-type hiatal hernia. 3. Chronic appearing mild superior endplate compression fracture deformities of T11, T12 and L2 resul ting in less than 25% anterior height loss at each level. Radiation optimization: All CT scans at this facility use at least one of these dose optimization ronny hniques: automated exposure control mA and/or kV adjustment per patient size (includes targeted exam s where dose is matched to clinical indication) or iterative reconstruction.
[2025-01-21] MEDS: SODIUM CHLOR 0.9% PF (SALINE LOCK) 10ML VIAL/SYR IV SCH (05:16)
[2025-01-21 06:16] LABS: Hematocrit 36.4 % (36.0-46.0); Hemoglobin 12.2 g/dL (12.2-16.2); Mean Corpuscular Hemoglobin 31.1 pg (28.0-32.0); Mean Corpuscular Volume 92.8 fL (80.0-100.0); Nucleated Red Blood Cells % 0.1 %
[2025-01-21 06:28] LABS: Albumin 4.3 g/dL (3.2-4.8); Alkaline Phosphatase 52 U/L (46-116); Anion Gap 10 (5-15); BUN/Creatinine Ratio 11.8 (10.0-20.0); Bilirubin, Total 0.4 mg/dL (0.2-1.0); Calcium 9.8 mg/dL (8.7-10.4); Carbon Dioxide 26 mmol/L (20-31); Chloride 104 mmol/L (98-107); Glucose 94 mg/dL (74-106); Potassium 3.7 mmol/L (3.5-5.1); Sodium 140 mmol/L (136-145); Total Protein 7.3 g/dL (5.7-8.2)
[2025-01-21 06:29] LABS: Alanine Aminotransferase < 9 U/L (7-40); Blood Urea Nitrogen 9 mg/dL (9-23)
[2025-01-21 07:03] LABS: Triglycerides 68.0 mg/dL (< 150)
[2025-01-21 07:04] LABS: Magnesium 2.1 mg/dL (1.6-2.6)
[2025-01-21 07:05] LABS: Cholesterol 182.0 mg/dL (< 200); HDL Cholesterol 59.0 mg/dL (40-59)
[2025-01-21 07:17] LABS: Urine Protein, UAD Negative (Negative)
[2025-01-21 07:31] LABS: Amphetamine Screen, Urine Neg (NEGATIVE); Barbiturate Scree,Urine Neg (NEGATIVE); Benzodiazephine Screen, Urine Neg (NEGATIVE); Cannabinoid Screen, Urine Neg (NEGATIVE); Cocaine Screen, Urine Neg (NEGATIVE); Opiate Scree,Urine Neg (NEGATIVE); Phencyclidine Screen, Urine Neg (NEGATIVE)
[2025-01-21] MEDS: PANTOPRAZOLE 40 MG/10 ML VIAL INJ IV SCH (09:52)
[2025-01-21] MEDS: KETOROLAC TROMETH 30 MG/ML 1ML VIAL IV PRN (09:53)
[2025-01-21] MEDS ORDERED: CIPROFLOXACIN HYDROCHLORIDE 250 MG TAB PO SCH (10:00)
[2025-01-21 14:06] LABS: COVID19 ANTIGEN SOFIA FIA POSITIVE (NEGATIVE)
--- NOTE | 2025-01-21 16:21 | DVHPNRES ---
Progress Note Date Seen: Jan 21, 2025 Resident Creating Document: GERMAN TAVERAS RESIDENT Medical Necessity Reason Pt with a Central, PICC or Fol: No Subjective Review of Systems Patient is a 74-year-old female with past medical history of UTI, presented to [facility] ED with complaint of headache and chest pain. The patient reports headache that began 4 days ago, described as frontal in location. Patient has experienced worsening symptoms including right-sided chest pain radiating to the right arm, dizziness, and nausea that began 2 days ago. The patient also complains of urinary tract infection (UTI) symptoms, including frequent urination and lower abdominal pain. She denies shortness of breath, vomiting, diarrhea, abdominal pain, or syncope. She was evaluated at an urgent care center earlier today and was referred to the emergency department for further evaluation. On evaluation in the ED, patient is afebrile, vitals are stable. Initial labs show troponin <3, serum glucose 111. Head CT shows no acute intracranial abnormality. Patient is admitted for further evaluation and management. Renal/: UTI Past Surgical History: None Family History: None Smoke: No ALCOHOL: Admits to occasional alcohol use Drugs: Admits to occasional marijuana use PCP Dr. Ndiaye General: patient denies fever, fatigue, weaknes, sweating, any recent changes in appetite and weight HEENT: visiual changes, hearing loss, tinnitus, nasal congestion and discharge. Complains of headache and sore throat Cardiovascular: Denies palpitations, dyspnea on exertion, orthopnea, or claudication. Complains of chest pain Respiratory: No cough, and wheezing. Gastrointestinal: Denies nausea, vomiting, dysphagia, odynophagia, heartburn, abdominal pain, flatulence, bloating, diarrhea, constipation, change in stool, or blood in stool. Genitourinary: No dysuria, hematuria, discharge, frequency, urgency, nocturia, incontinence, and urinary retention. Endocrine: No heat or cold intolerance, polydipsia, polyuria, and polyphagia. Neurological: No dizziness, extremity weakness and numbness, tremors, gait disturbance, seizures, and memory impairment. Psychiatric: Denies depression, anxiety,or insomnia. Musculoskeletal: Denies neck pain, stiffness and swelling, back pain, muscle weakness, joint pain, stiffness, swelling, or limited range of motion. Skin: No rashes, itching, skin lesion, changes in hair, nail, skin texture and breast. Hematologic/Lymphatic: Denies easy bruising, bleeding tendencies, or lymph node enlargement. Objective vital signs Vital Sign Date Time Temp Pulse Resp B/P (MAP) Pulse Ox O2 Delivery O2 Flow Rate FiO2 01/21/25 09:00 98.0 71 18 127/64 (85) 100 98.0 01/21/25 01:51 Room Air* 0 21 Total Intake and Output 01/20/25 01/20/25 01/21/25 15:00 23:00 07:00 Intake Total 0 ml Balance 0 ml medications Current Medications Medications Dose Ordered Sig/Carl Route Start Time Stop Time Status Last Admin Dose Admin Sodium Chloride 10 ml Q8HR IV 01/21/25 06:00 01/21/25 05:16 10 ML Ondansetron HCl 4 mg Q4HP PRN IV 01/20/25 22:30 Acetaminophen 650 mg Q6HP PRN PO 01/20/25 22:30 01/21/25 12:47 650 MG Nitroglycerin 0.4 mg Q5MINP PRN SL 01/20/25 22:30 Morphine Sulfate 2 mg Q30M PRN IV 01/20/25 22:30 Ceftriaxone Sodium 50 ml @ 100 mls/hr DAILY@09 IV 01/22/25 09:00 Ketorolac Tromethamine 15 mg Q6HPRN PRN IV 01/21/25 00:00 01/26/25 00:00 01/21/25 09:53 15 MG Aspirin 81 mg DAILY PO 01/21/25 10:00 01/21/25 09:51 81 MG Atorvastatin Calcium 40 mg HS PO 01/21/25 22:00 Pantoprazole Sodium 40 mg DAILY IV 01/21/25 10:00 01/21/25 09:52 40 MG Examination General Appearance: Cooperative. Well developed. Well nourished. NAD Head Exam: Normal inspection Neck Exam: Normal inspection. Non-tender. Normal alignment Pulmonary/Respiratory: Chest non-tender. Clear bilateral breath sounds, no crackles, no wheezing. Cardiovascular/Chest: Regular rate and rhythm. No murmurs. No JVD. Tenderness present in the chest Peripheral Pulses: 2+ Radial (R). 2+ Radial (L). 2+ Pedal (R). 2+ Pedal (L) Abdominal Exam: Normal bowel sounds. Soft. normal abdomen, no visible veins, No hepatospenomegaly. No masses, diffuse abdominal tenderness Ankle Exam: Negative ankle edema Lower extremities: Negative lower extremity edema Neuro/Mental Status: A&O x4. Coherent. Thoughts/Psych: Normal thought pattern. Appropriate mood and affect. Good judgement and insight Skin Exam: Normal inspection. Normal color. Warm. Dry laboratory and microbiology Laboratory Tests 01/21/25 05:30 Test 01/21/25 05:30 Range/Units Serum Glucose 94 74-106 mg/dL Problem List/Assessment/Plan Problem List/Assessment/Plan Acute intractable headache with unknown etiology Head CT: no acute intracranial abnormality seen Carotid Doppler Study: normal right/ left carotid system pain management with Tylenol 650 mg and Toradol IV Chronic compression fracture of T11/T12 and L2 Acute intractable chest pain likely due to above, musculoskeletal Abdomen/Pelvis CT: Chronic appearing mild superior endplate compression fracture deformities of T11, T12 and L2 resulting in less than 25% anterior height loss at each level. Monitor Pain control with Tylenol Outpatient follow-up with Orthopedics EKG: Sinus rhythm. Magnesium Repeat panel Aspirin 81 mg p.o. daily Lipitor 40 mg p.o. HS UTI, symptomatic Urine bacterial culture repeat urinalysis Ceftriaxone IV 1 g daily COVID-19 positive Isolation Small sliding-type hiatal hernia Abdomen/Pelvis CT: Small sliding-type hiatal hernia. No acute abdominal or pelvic findings. Outpatient follow-up Goals of care: Full code, discussed for 18 minutes Plan discussed with Dr. Chapman Plan discussed with: Patient Plan discussed with: Patient My Orders My Orders Orders - GERMAN TAVERAS RESIDENT Procedure Category Date Status Time Mrsa Screen BEATRICE 01/21/25 In Process 08:43 Date of Service: Jan 21, 2025 Billing Provider: LAZARA CHAPMAN MD Common Visit Codes: [id number] INP/OBS CARE(HIGH) GERMAN TAVERAS RESIDENT Jan 21, 2025 16:21
--- NOTE | 2025-01-21 18:04 | DVHSR ---
APPROVED REPORT EXAM: Two-dimensional and M-mode echocardiogram with Doppler and color Doppler. Blood Pressure: 127/64 mmHg INDICATION Chest Pain DIMENSIONS LVDd4.0 (3.8-5.7cm)LA (2D)3.5 (1.9-4.0cm)Aortic Root2.8 (2.0-3.7cm) LVDs2.4 (2.5-4.0cm)LA (MM) (1.9-4.0cm)Aortic Cusp Exc1.8 (1.5-2.0cm) EF (%) 70.0 (55-70%)Rt. Atrium3.6 (1.9-4.0cm)Asc. Aorta cm IVSd0.9 (0.7-1.1cm)RV (D) (1.8-2.4cm) PWd1.1 (0.7-1.1cm) Mitral Valve MitralMitral Stenosis E wave0.71m/sMV Mean GR.mmHg A wave0.87m/sMV Peak GR.mmHg E/A ratio0.82D MVAcm2 DECEL [id number] 1/2 Timems Aortic Valve Aortic ValveAortic Stenosis V11.06m/Yesy Mean GR.3mmHg V21.19m/Yesy Peak GR.6mmHg LVOT Diameter2.1 (1.8-2.4cm)Doppler AVA3.08cm2 Pulmonic Valve V20.64m/s Other Information Quality : Technically LimitedRhythm : Technically limited study due to body habitus. Conclusion lvef 55% mild LVH normal RV function biatiral enlargement trivial pericardial effusion noted
[2025-01-21] MEDS: ATORVASTATIN 20 MG TAB PO SCH (22:00)
[2025-01-21] MEDS: MELATONIN 5 MG TAB PO ONE (23:14)
[2025-01-22] VITALS (9 sets, daily range): BP systolic 124–139; BP diastolic 64–87; PULSE 75–101; RESP 15–18; TEMP 98–101.4; O2SAT 95–98
[2025-01-22 08:11] LABS: Hematocrit 36.1 % (36.0-46.0); Hemoglobin 12.2 g/dL (12.2-16.2); Mean Corpuscular Hemoglobin 31.2 pg (28.0-32.0); Mean Corpuscular Volume 92.1 fL (80.0-100.0); Nucleated Red Blood Cells % 0.0 %
[2025-01-22 08:16] LABS: Anion Gap 12 (5-15); Carbon Dioxide 24 mmol/L (20-31); Chloride 104 mmol/L (98-107); Sodium 140 mmol/L (136-145)
[2025-01-22 08:17] LABS: Calcium 9.4 mg/dL (8.7-10.4)
[2025-01-22 08:21] LABS: Glucose 101 mg/dL (74-106)
[2025-01-22 08:22] LABS: BUN/Creatinine Ratio 17.5 (10.0-20.0); Blood Urea Nitrogen 14 mg/dL (9-23)
[2025-01-22 08:28] LABS: Potassium 3.4 mmol/L (3.5-5.1)
[2025-01-22] MEDS: CHOLECALCIFEROL (VITD3) 1,000UNIT=25mCg TAB PO ONE (12:30)
[2025-01-22] MEDS: POTASSIUM EFFERVESENT TAB 25 MEQ PO ONE (12:30)
--- NOTE | 2025-01-22 14:43 | DVHPNRES ---
Progress Note Date Seen: Jan 22, 2025 Resident Creating Document: GERMAN TAVERAS Medical Necessity Reason Pt with a Central, PICC or Fol: No Medical Necessity Reason Subjective Review of Systems Patient seen at bedside. New complaints. Says chest pain has subsided. Still complains of headache and sore throat. Patient is a 74-year-old female with past medical history of UTI, presented to [facility] ED with complaint of headache and chest pain. The patient reports headache that began 4 days ago, described as frontal in location. Patient has experienced worsening symptoms including right-sided chest pain radiating to the right arm, dizziness, and nausea that began 2 days ago. The patient also complains of urinary tract infection (UTI) symptoms, including frequent urination and lower abdominal pain. She denies shortness of breath, vomiting, diarrhea, abdominal pain, or syncope. She was evaluated at an urgent care center earlier today and was referred to the emergency department for further evaluation. On evaluation in the ED, patient is afebrile, vitals are stable. Initial labs show troponin <3, serum glucose 111. Head CT shows no acute intracranial abnormality. Patient is admitted for further evaluation and management. Renal/: UTI Past Surgical History: None Family History: None Smoke: No ALCOHOL: Admits to occasional alcohol use Drugs: Admits to occasional marijuana use PCP Dr. Ndiaye General: patient denies fever, fatigue, weaknes, sweating, any recent changes in appetite and weight HEENT: visual changes, hearing loss, tinnitus, nasal congestion and discharge. Complains of headache and sore throat Cardiovascular: Denies palpitations, dyspnea on exertion, orthopnea, or claudication. Complains of chest pain Respiratory: No cough, and wheezing. Gastrointestinal: Denies nausea, vomiting, dysphagia, odynophagia, heartburn, abdominal pain, flatulence, bloating, diarrhea, constipation, change in stool, or blood in stool. Genitourinary: No dysuria, hematuria, discharge, frequency, urgency, nocturia, incontinence, and urinary retention. Endocrine: No heat or cold intolerance, polydipsia, polyuria, and polyphagia. Neurological: No dizziness, extremity weakness and numbness, tremors, gait disturbance, seizures, and memory impairment. Psychiatric: Denies depression, anxiety,or insomnia. Musculoskeletal: Denies neck pain, stiffness and swelling, back pain, muscle weakness, joint pain, stiffness, swelling, or limited range of motion. Skin: No rashes, itching, skin lesion, changes in hair, nail, skin texture and breast. Hematologic/Lymphatic: Denies easy bruising, bleeding tendencies, or lymph node enlargement. Objective vital signs Vital Sign Date Time Temp Pulse Resp B/P (MAP) Pulse Ox O2 Delivery O2 Flow Rate FiO2 01/22/25 09:00 100.3 101 18 139/87 (104) 97 100.3 01/22/25 08:30 Room Air* 0 21 Total Intake and Output 01/21/25 01/21/25 01/22/25 15:00 23:00 07:00 Intake Total 400 ml 640 ml Balance 400 ml 640 ml medications Current Medications Medications Dose Ordered Sig/Carl Route Start Time Stop Time Status Last Admin Dose Admin Sodium Chloride 10 ml Q8HR IV 01/21/25 06:00 01/22/25 12:31 10 ML Ondansetron HCl 4 mg Q4HP PRN IV 01/20/25 22:30 Acetaminophen 650 mg Q6HP PRN PO 01/20/25 22:30 01/22/25 08:57 650 MG Nitroglycerin 0.4 mg Q5MINP PRN SL 01/20/25 22:30 Morphine Sulfate 2 mg Q30M PRN IV 01/20/25 22:30 Ceftriaxone Sodium 50 ml @ 100 mls/hr DAILY@09 IV 01/22/25 09:00 01/22/25 08:57 100 MLS/HR Ketorolac Tromethamine 15 mg Q6HPRN PRN IV 01/21/25 00:00 01/26/25 00:00 01/22/25 12:32 15 MG Aspirin 81 mg DAILY PO 01/21/25 10:00 01/22/25 08:58 81 MG Atorvastatin Calcium 40 mg HS PO 01/21/25 22:00 Pantoprazole Sodium 40 mg DAILY IV 01/21/25 10:00 01/22/25 08:57 40 MG Cholecalciferol 2,000 unit DAILY PO 01/23/25 10:00 Examination General Appearance: Cooperative. Well developed. Well nourished. NAD Head Exam: Normal inspection Neck Exam: Normal inspection. Non-tender. Normal alignment Pulmonary/Respiratory: Chest non-tender. Clear bilateral breath sounds, no crackles, no wheezing. Cardiovascular/Chest: Regular rate and rhythm. No murmurs. No JVD. Tenderness present in the chest Peripheral Pulses: 2+ Radial (R). 2+ Radial (L). 2+ Pedal (R). 2+ Pedal (L) Abdominal Exam: Normal bowel sounds. Soft. normal abdomen, no visible veins, No hepatospenomegaly. No masses, diffuse abdominal tenderness Ankle Exam: Negative ankle edema Lower extremities: Negative lower extremity edema Neuro/Mental Status: A&O x4. Coherent. Thoughts/Psych: Normal thought pattern. Appropriate mood and affect. Good judgement and insight Skin Exam: Normal inspection. Normal color. Warm. Dry laboratory and microbiology Laboratory Tests 01/22/25 07:16 Test 01/22/25 07:16 Range/Units Serum Glucose 101 74-106 mg/dL Microbiology Date/Time Source Procedure Growth Status 01/21/25 11:53 Blood Blood Culture - Preliminary NO GROWTH AFTER 24 HOURS OF INCUBATION. Resulted Problem List/Assessment/Plan Problem List/Assessment/Plan Acute intractable headache with unknown etiology Head CT: no acute intracranial abnormality seen Carotid Doppler Study: normal right/ left carotid system pain management with Tylenol 650 mg and Toradol IV Chronic compression fracture of T11/T12 and L2 Acute intractable chest pain likely due to above, musculoskeletal Abdomen/Pelvis CT: Chronic appearing mild superior endplate compression fracture deformities of T11, T12 and L2 resulting in less than 25% anterior height loss at each level. Monitor Pain control with Tylenol Outpatient follow-up with Orthopedics EKG: Sinus rhythm. Magnesium Repeat panel Aspirin 81 mg p.o. daily Lipitor 40 mg p.o. HS UTI, symptomatic Urine bacterial culture repeat urinalysis Ceftriaxone IV 1 g daily COVID-19 positive Isolation Small sliding-type hiatal hernia Abdomen/Pelvis CT: Small sliding-type hiatal hernia. No acute abdominal or pelvic findings. Outpatient follow-up Hypokalemia Follow up potassium levels Goals of care: Full code, discussed for 18 minutes Plan discussed with Dr. Chapman Plan discussed with: Patient Plan discussed with: Patient My Orders My Orders Orders - GERMAN TAVERAS RESIDENT Procedure Category Date Status Time Rapid Strep Screen - LAB 01/22/25 Logged Throat 12:27 Date of Service: Jan 22, 2025 Billing Provider: LAZARA CHAPMAN MD Common Visit Codes: [id number] INP/OBS CARE(HIGH) GERMAN TAVERAS RESIDENT Jan 22, 2025 14:15
[2025-01-22] MEDS ORDERED: MAALOX PLUS or MAALOX 30 ML PO PRN (15:30)
[2025-01-22] MEDS: MAALOX PLUS or MAALOX 30 ML PO ONE (16:14)
[2025-01-22 17:06] LABS: Rapid Strep A Screen-Throat Negative
[2025-01-22] MEDS ORDERED: MELATONIN 5 MG TAB PO ONE (22:00)
[2025-01-23] VITALS (8 sets, daily range): BP systolic 107–138; BP diastolic 58–90; PULSE 63–89; RESP 12–19; TEMP 98.3–100; O2SAT 94–99
[2025-01-23] MEDS: CHOLECALCIFEROL (VITD3) 1,000UNIT=25mCg TAB PO SCH (09:24)
[2025-01-23 09:27] LABS: Hematocrit 36.0 % (36.0-46.0); Hemoglobin 12.2 g/dL (12.2-16.2); Mean Corpuscular Hemoglobin 31.3 pg (28.0-32.0); Mean Corpuscular Volume 92.2 fL (80.0-100.0); Nucleated Red Blood Cells % 0.1 %
[2025-01-23 09:38] LABS: Chloride 102 mmol/L (98-107); Sodium 140 mmol/L (136-145)
[2025-01-23 09:39] LABS: Anion Gap 13 (5-15); Calcium 9.3 mg/dL (8.7-10.4); Carbon Dioxide 25 mmol/L (20-31)
[2025-01-23 09:41] LABS: Potassium 3.3 mmol/L (3.5-5.1)
[2025-01-23 09:44] LABS: BUN/Creatinine Ratio 16.4 (10.0-20.0); Blood Urea Nitrogen 12 mg/dL (9-23); Glucose 92 mg/dL (74-106)
[2025-01-23] MEDS ORDERED: ACETAMINOPHEN 500 MG TAB or CAP PO PRN (11:00)
[2025-01-23] MEDS ORDERED: THROAT LOZENGES(CEPASTAT) MT PRN (11:00)
--- NOTE | 2025-01-23 11:21 | DVHPNRES ---
Progress Note Date Seen: Jan 23, 2025 Resident Creating Document: JANIS EUGENE RESIDENT Medical Necessity Reason Pt with a Central, PICC or Fol: No Subjective Review of Systems Patient seen and examined at bedside Continues to have fever overnight Remains on room air, complaining of sore throat Started patient on prophylactic Lovenox, mechanical soft diet with nutritional supplementation Objective vital signs Vital Sign Date Time Temp Pulse Resp B/P (MAP) Pulse Ox O2 Delivery O2 Flow Rate FiO2 01/23/25 09:00 100.0 89 12 107/64 (78) 95 100.0 01/23/25 08:00 Room Air* 0 21 Total Intake and Output 01/22/25 01/22/25 01/23/25 15:00 23:00 07:00 Intake Total 50 ml 450 ml 310 ml Balance 50 ml 450 ml 310 ml medications Current Medications Medications Dose Ordered Sig/Carl Route Start Time Stop Time Status Last Admin Dose Admin Sodium Chloride 10 ml Q8HR IV 01/21/25 06:00 01/23/25 06:07 10 ML Ondansetron HCl 4 mg Q4HP PRN IV 01/20/25 22:30 Acetaminophen 650 mg Q6HP PRN PO 01/20/25 22:30 01/23/25 09:24 650 MG Nitroglycerin 0.4 mg Q5MINP PRN SL 01/20/25 22:30 Morphine Sulfate 2 mg Q30M PRN IV 01/20/25 22:30 Ceftriaxone Sodium 50 ml @ 100 mls/hr DAILY@09 IV 01/22/25 09:00 01/23/25 09:23 100 MLS/HR Ketorolac Tromethamine 15 mg Q6HPRN PRN IV 01/21/25 00:00 01/26/25 00:00 01/22/25 21:52 15 MG Aspirin 81 mg DAILY PO 01/21/25 10:00 01/23/25 09:23 81 MG Atorvastatin Calcium 40 mg HS PO 01/21/25 22:00 01/22/25 21:52 40 MG Pantoprazole Sodium 40 mg DAILY IV 01/21/25 10:00 01/23/25 09:23 40 MG Cholecalciferol 2,000 unit DAILY PO 01/23/25 10:00 01/23/25 09:24 2,000 UNIT Al Hydrox/Mg Hydrox/Simethicone 15 ml Q8HP PRN PO 01/22/25 15:30 Throat Lozenges 1 tristin Q2HP PRN MT 01/23/25 11:00 Melatonin 5 mg HS PO 01/23/25 22:00 Acetaminophen 500 mg Q8HP PRN PO 01/23/25 11:00 UNV Zinc Sulfate 220 mg DAILY PO 01/24/25 10:00 Enoxaparin Sodium 40 mg DAILY SC 01/24/25 10:00 Examination General Appearance: Cooperative. Well developed. Well nourished. NAD Pulmonary/Respiratory: Chest non-tender. Equal bilateral breath sounds, no crackles, no wheezing. Cardiovascular/Chest: Regular rate and rhythm. No murmurs. No JVD. Peripheral Pulses: 2+ Pedal (R). 2+ Pedal (L) Abdominal Exam: Normal bowel sounds. Soft. normal abdomen, no visible veins, Nontender. No hepatospenomegaly. No masses Ankle Exam: Negative ankle edema Neuro/Mental Status: A&O x4. Coherent. Thoughts/Psych: Normal thought pattern. Appropriate mood and affect. Good judgement and insight Skin Exam: Normal inspection. Normal color. Warm. Dry laboratory and microbiology Laboratory Tests 01/23/25 08:15 Test 01/23/25 08:15 Range/Units Serum Glucose 92 74-106 mg/dL Microbiology Date/Time Source Procedure Growth Status 01/21/25 11:53 Blood Blood Culture - Preliminary NO GROWTH AFTER 24 HOURS OF INCUBATION. 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 Monitor Pain control with Tylenol Outpatient follow-up with Orthopedics EKG: Sinus rhythm. Magnesium Repeat panel Aspirin 81 mg p.o. daily Lipitor 40 mg p.o. HS UTI, symptomatic Urine bacterial culture repeat urinalysis Ceftriaxone IV 1 g daily COVID-19 positive Isolation Zinc supplementation Incentive spirometry Throat lozenges Physical therapy Small sliding-type hiatal hernia Abdomen/Pelvis CT: Small sliding-type hiatal hernia. No acute abdominal or pelvic findings. Outpatient follow-up Hypokalemia Repleted DVT prophylaxis: Lovenox GI prophylaxis: Protonix Goals of care: Full code, discussed for 18 minutes Plan discussed with Dr. Chapman Plan discussed with: Patient Plan discussed with: Patient, Other (RN) My Orders My Orders Orders - JANIS EUGENE RESIDENT Procedure Category Date Status Time Throat Lozenges PHA 01/23/25 In Process (Cepastat Lozenges) 11:00 Melatonin (Melatonin) PHA 01/23/25 In Process 22:00 Acetaminophen Tab Or PHA 01/23/25 Pending Cap (Tylenol Tablet 11:00 Zinc Sulfate PHA 01/24/25 In Process 10:00 Oob To Chair GWEN 01/23/25 In Process 10:52 Incentive Spirometry ORDERS 01/23/25 Transmitted Q 1hr 10:52 Enoxaparin Sodium PHA 01/24/25 In Process (Lovenox) 10:00 Date of Service: Jan 23, 2025 Billing Provider: LAZARA CHAPMAN MD Common Visit Codes: [id number] INP/OBS CARE(HIGH) JANIS EUGENE RESIDENT Jan 23, 2025 11:21
[2025-01-23] MEDS: POTASSIUM EFFERVESENT TAB 25 MEQ PO ONE (12:48)
[2025-01-23] MEDS: Ensure HIGH Protein Vanilla 8oz Bottle PO SCH (17:29)
[2025-01-23] MEDS: MELATONIN 5 MG TAB PO SCH (21:27)
[2025-01-24] VITALS (7 sets, daily range): BP systolic 104–137; BP diastolic 68–83; PULSE 62–80; RESP 17–18; TEMP 36.3; O2SAT 95–99
[2025-01-24 05:11] LABS: Hematocrit 36.5 % (36.0-46.0); Hemoglobin 12.1 g/dL (12.2-16.2); Mean Corpuscular Hemoglobin 30.8 pg (28.0-32.0); Mean Corpuscular Volume 92.9 fL (80.0-100.0); Nucleated Red Blood Cells % 0.0 %
[2025-01-24 05:28] LABS: Anion Gap 12 (5-15); Carbon Dioxide 28 mmol/L (20-31); Chloride 101 mmol/L (98-107); Potassium 3.8 mmol/L (3.5-5.1); Sodium 141 mmol/L (136-145)
[2025-01-24 05:30] LABS: Calcium 9.4 mg/dL (8.7-10.4)
[2025-01-24 05:35] LABS: BUN/Creatinine Ratio 20.3 (10.0-20.0); Blood Urea Nitrogen 14 mg/dL (9-23); Glucose 87 mg/dL (74-106)
[2025-01-24] MEDS: ZINC SULFATE 220mg CAP or TAB PO SCH (08:59)
[2025-01-24] MEDS: ENOXAPARIN SOD 40 MG/0.4 ML SYRINGE SC SCH (09:00)
[2025-01-24] MEDS ORDERED: CEPH500C PO (12:51)
--- NOTE | 2025-01-24 13:40 | DVHDSRES ---
Discharge Summary Date of Admission Resident Creating Document: GERMAN TAVERAS RESIDENT Jan 20, 2025 at 22:23 Date of Discharge: Jan 24, 2025 Labs/Diagnostic Data: Laboratory Results Test 01/24/25 04:30 01/22/25 16:30 01/22/25 13:09 01/21/25 19:42 White Blood Count 6.3 10^3/uL (4.4-10.8) Red Blood Count 3.93 10^6/uL (4.0-5.20) Hemoglobin 12.1 g/dL (12.2-16.2) Hematocrit 36.5 % (36.0-46.0) Mean Corpuscular Volume 92.9 fL (80.0-100.0) Mean Corpuscular Hemoglobin 30.8 pg (28.0-32.0) Mean Corpuscular Hemoglobin Concent 33.1 g/dL (32.0-36.0) Red Cell Distribution Width 13.4 % (11.8-14.3) Platelet Count 204 10^3/uL (140-450) Mean Platelet Volume 8.5 fL (6.9-10.8) Neutrophils (%) (Auto) 42.2 % (37.0-80.0) Lymphocytes (%) (Auto) 45.5 % (10.0-50.0) Monocytes (%) (Auto) 10.7 % (0.0-12.0) Eosinophils (%) (Auto) 1.4 % (0.0-7.0) Basophils (%) (Auto) 0.2 % (0.0-2.0) Neutrophils # (Auto) 2.7 10 ^3/uL (1.6-8.6) Lymphocytes # (Auto) 2.9 10 ^3/uL (0.4-5.4) Monocytes # (Auto) 0.7 10 ^3/uL (0-1.3) Eosinophils # (Auto) 0.1 10 ^3/uL (0-0.8) Basophils # (Auto) 0 10 ^3/uL (0-0.2) Nucleated Red Blood Cells 0.0 % Sodium Level 141 mmol/L (136-145) Potassium Level 3.8 mmol/L (3.5-5.1) Chloride Level 101 mmol/L (98-107) Carbon Dioxide Level 28 mmol/L (20-31) Anion Gap 12 (5-15) Blood Urea Nitrogen 14 mg/dL (9-23) Creatinine 0.69 mg/dL (0.550-1.02) Glomerular Filtration Rate Calc 90 mL/min (>90) BUN/Creatinine Ratio 20.3 (10.0-20.0) Serum Glucose 87 mg/dL (74-106) Calcium Level 9.4 mg/dL (8.7-10.4) Group A Streptococcus Rapid Negative Influenza Type A Antigen Negative (Negative) Influenza Type B Antigen Negative (Negative) D-Dimer, Quantitative 0.56 mg/L FEU (0.0-0.49) Test 01/21/25 12:50 01/21/25 11:53 01/21/25 05:30 01/20/25 23:23 SARS-CoV-2 Antigen (Rapid) Positive (NEGATIVE) Erythrocyte Sedimentation Rate 28 mm/hr (0-20) C-Reactive Protein High Sensitivity 2.27 mg/dL (<1.0) Magnesium Level 2.1 mg/dL (1.6-2.6) Total Bilirubin 0.4 mg/dL (0.2-1.0) Aspartate Amino Transferase (AST) 15 U/L (13-40) Alanine Aminotransferase (ALT) < 9 U/L (7-40) Alkaline Phosphatase 52 U/L (46-116) Total Protein 7.3 g/dL (5.7-8.2) Albumin 4.3 g/dL (3.2-4.8) Triglycerides Level 68 mg/dL (< 150) Cholesterol Level 182 mg/dL (< 200) LDL Cholesterol 105 mg/dL (< 100) HDL Cholesterol 59 mg/dL (40-59) Lactic Acid Level 1.0 mmol/L (0.4-2.0) Troponin I High Sensitivity < 3 ng/L (</=34) Test 01/20/25 18:25 01/20/25 15:49 01/20/25 07:05 Direct Bilirubin 0.1 mg/dL (<0.3) Thyroid Stimulating Hormone (TSH) 1.51 uIU/mL (0.55-4.78) B-Type Natriuretic Peptide 58.86 pg/mL (0-100) Urine Color Light-yellow (Yellow) Urine Clarity Clear (Clear) Urine pH 5.5 (5.0-9.0) Urine Specific [place] 1.018 (1.001-1.035) Urine Protein Negative (Negative) Urine Ketones 1+ (Negative) Urine Blood Negative /uL (Negative) Urine Nitrite Negative (Negative) Urine Bilirubin Negative (Negative) Urine Urobilinogen Normal mg/dL (Negative) Urine Leukocyte Esterase 1+ /uL (Negative) Urine RBC 1 /hpf (0 - 4) Urine Microscopic WBC 9 /HPF (0-5) Urine Squamous Epithelial Cells Few /hpf (<5) Urine Bacteria Few /hpf (None Seen) Urine Mucus Few (None Seen) Urine Glucose Normal mg/dL (Normal) Urine Opiates Screen Neg (NEGATIVE) Urine Fentanyl Screen Neg (NEGATIVE) Urine Barbiturates Screen Neg (NEGATIVE) Urine Phencyclidine Screen Neg (NEGATIVE) Urine Amphetamines Screen Neg (NEGATIVE) Urine Benzodiazepines Screen Neg (NEGATIVE) Urine Cocaine Screen Neg (NEGATIVE) Urine Cannabinoids Screen Neg (NEGATIVE) Other Laboratory Tests 01/24/25 04:30 Brief Hx & Hospital Course: Ramona Mendosa is a 74-year-old female with past medical history of UTI, presented to [facility] ED with complaint of headache and chest pain. The patient reported headache that began 4 days ago, described as frontal in location. Patient experienced worsening symptoms including right-sided chest pain radiating to the right arm, dizziness, and nausea that began 2 days prior. The patient also complained of urinary tract infection (UTI) symptoms, including frequent urination and lower abdominal pain. She denied shortness of breath, vomiting, diarrhea, abdominal pain, or syncope.. CRP levels were mildly elevated. Urinalysis revealed urinary tract infection. She tested positive for COVID-19 and was kept in isolation. She had mild hypokalemia. Head CT showed no acute intracranial abnormality. Carotid Doppler study was normal. Abdominal pelvis CT revealed a chronic endplate compression fracture of T11, T12 and L2. while in the hospital she was treated with zinc, ceftriaxone, Toradol, Zofran. During the course of hospitalization patient got clinically better and says being discharged. Condition at Discharge: Fair Final Diagnosis/Problems List Acute intractable headache, ruled out ICH Chronic compression fracture of T11/T12 and L2 Acute intractable chest pain likely due to above, musculoskeletal Chronic superior endplate compression fracture of T11, T12 and L2 UTI, symptomatic COVID-19 Small sliding-type hiatal hernia Hypokalemia Discharge Disposition: Home Discharge Instruct/Medications Diet: Regular Activity: No Restrictions, As Tolerated Follow Up/Referral: Follow up with PCP in 7 days Scheduled Cephalexin Monohydrate (Cephalexin), 1 CAP PO BID Ciprofloxacin Hcl (Cipro), 1 TAB PO BID Ibuprofen (Ibuprofen), 200 MG PO PRN, (Reported) Discharge Statement: "Patient was advised to return to the ER or call 911 if any headaches, dizziness, shortness of breath, chest pain, abdominal pain, bleeding, fevers, or worsening of medical condition. Patient was counseled about treatment plan, medications, possible side effects, patientverbalized understanding. All questions were answered to the best of my ability. This discharge took greater then 30 minutes in planning, reviewing documentation, counseling the patient, and discussing with other team members." DME: Diagnosis: FWW for ambulation and fall safety discussed with Dr. Chapman ASSESSMENT ASSESSMENT Assessment UTI COVID 19 Date of Service: Jan 24, 2025 Billing Provider: LAZARA CHAPMAN MD Common Visit Codes: [id number] DISCH DAY >30min GERMAN TAVERAS RESIDENT Jan 24, 2025 13:40
== END 2025-01-24 17:00 | disposition home health service (06) | DRG 542 ==
LOC: ER 15:06 → OVERFLOW 22:23 → EAST 01-21 01:28 → TELE-EAST 01-21 05:27
PROVIDERS: ADMIT Internal Medicine Geriatric Medicine; ATTEND Internal Medicine Geriatric Medicine
DX: M48.54XA Collapsed vertebra, not elsewhere classified, thoracic region, initial encounter for fracture (principal); U07.1 COVID-19; N39.0 Urinary tract infection, site not specified; M43.8X4 Other specified deforming dorsopathies, thoracic region; I25.10 Atherosclerotic heart disease of native coronary artery without angina pectoris; E87.6 Hypokalemia; K44.9 Diaphragmatic hernia without obstruction or gangrene; M48.56XA Collapsed vertebra, not elsewhere classified, lumbar region, initial encounter for fracture
CPT/HCPCS: 36415; 70450; 71045; 74176; 80048; 80053; 80061; 80076; 80307; 81001; 83605; 83735; 83880; 84443; 84484; 85025; 85379; 85652; 86141; 87040; 87070; 87081; 87086; 87426; 87804; 87880; 93005; 93306; 93886; 97110; 97116; 97163; 97530; 99291; 99292; G0378; J1885; J2470